=== PATIENT | male | born 1985 | race American Indian/Alaskan Native ===

== ENCOUNTER 2017-06-16 09:53 | Emergency (ER) | payer OTHER ==
[2017-06-16 11:06] VITALS: BP 131/50
[2017-06-16] MEDS ORDERED: MOTRIN PO ONE (12:57)
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
== END 2017-06-16 13:17 | disposition home or self-care (01) ==
LOC: ED 09:53
DX: R07.89 Other chest pain (principal); V89.2XXA Person injured in unspecified motor-vehicle accident, traffic, initial encounter; Y93.89 Activity, other specified; Y92.89 Other specified places as the place of occurrence of the external cause; Y99.8 Other external cause status
CPT/HCPCS: 93005; 93010; 99282